=== PATIENT | female | born 1960 | race Caucasian/White ===

== ENCOUNTER 2018-01-03 22:14 | Emergency (ER) | payer BC ==
[2018-01-04] MEDS: HYDROCODONE/APAP (10/325) TAB PO (01:36)
[2018-01-04] MEDS: CYCLOBENZAPRINE 10 MG TAB PO (01:36)
== END 2018-01-04 01:50 | disposition home or self-care (01) ==
LOC: FTE 22:14
DX: M54.6 Pain in thoracic spine (principal); G89.29 Other chronic pain
CPT/HCPCS: 99283; Z7502

== ENCOUNTER 2018-09-17 05:25 | Inpatient (IN) | payer BC ==
[2018-09-17] MEDS ORDERED: DESFLURANE 15 MIN (07:00)
[2018-09-17] MEDS ORDERED: ROCURONIUM 50 MG INJ (07:27)
[2018-09-17] MEDS ORDERED: CEFAZOLIN 1 GM INJ (07:27)
[2018-09-17] MEDS ORDERED: GLYCOPYRROLATE 0.4 MG INJ (07:27)
[2018-09-17] MEDS ORDERED: NEOSTIGMINE 3 MG/3 ML SYRINGE (07:27)
[2018-09-17] MEDS ORDERED: PROPOFOL 40 ML (07:27)
[2018-09-17] MEDS ORDERED: FENTAnyl 50 MCG/ML VIAL ×2 (07:28)
[2018-09-17] MEDS ORDERED: DEXAMETHASONE 4 MG/ML 5 ML INJ (07:28)
[2018-09-17] MEDS ORDERED: ONDANSETRON 4 MG INJ (07:28)
[2018-09-17] MEDS ORDERED: MIDAZOLAM 1 MG/ML 2 ML INJ ×3 (07:28→07:57)
[2018-09-17] MEDS ORDERED: morphine SULFATE/PF (10 MG/10 ML) INJ (07:34)
[2018-09-17] MEDS: CEFAZOLIN 2 GM/50 ML (PMX) 50 ML IVPB (08:00)
[2018-09-17] MEDS ORDERED: KETOROLAC 30 MG INJ IV (08:30)
[2018-09-17] MEDS ORDERED: NALOXONE (0.4 MG/ML) INJ IV (08:30)
[2018-09-17] MEDS ORDERED: ALBUTEROL 0.083% (NEB) 2.5 MG/3 ML AMP HHN (08:30)
[2018-09-17] MEDS ORDERED: MIDAZOLAM 1 MG/ML 2 ML INJ IV (08:30)
[2018-09-17] MEDS ORDERED: ONDANSETRON 4 MG INJ IV (08:30)
[2018-09-17] MEDS ORDERED: DIPHENHYDRAMINE 50 MG INJ IV ×2 (08:30)
[2018-09-17] MEDS ORDERED: TRIMETHOBENZAMIDE 100 MG/ML VIAL IM ×2 (08:30)
[2018-09-17] MEDS ORDERED: FENTAnyl 50 MCG/ML VIAL IV ×2 (08:30)
[2018-09-17] MEDS ORDERED: ZOLPIDEM 5 MG TAB PO ×2 (08:30→21:00)
[2018-09-17] MEDS ORDERED: NALBUPHINE HCL (10 MG/1 ML) INJ IV (08:30)
[2018-09-17] MEDS ORDERED: OXYCODONE/ACETAMINOPHEN (5/325) TAB PO ×2 (08:30)
[2018-09-17] MEDS ORDERED: HYDROmorphONE 0.5 MG/0.5 ML SYG IV ×2 (08:30)
[2018-09-17] MEDS ORDERED: EPHEDrine 25 MG/5 ML SYG IV (08:30)
[2018-09-17] MEDS ORDERED: HYDROmorphONE 1 MG/5 ML IV SYRINGE IV ×2 (08:30)
[2018-09-17] MEDS ORDERED: IPRATROPIUM (NEB) 0.5 MG/2.5 ML AMP HHN (08:30)
[2018-09-17] MEDS ORDERED: MEPERIDINE 25 MG INJ IV (08:30)
[2018-09-17] MEDS ORDERED: hydrALAzine 20 MG INJ IV (08:30)
[2018-09-17] MEDS ORDERED: LABETALOL HCL 20MG INJ IV (08:30)
[2018-09-17] MEDS ORDERED: DIPHENHYDRAMINE 50 MG CAP PO (10:30)
[2018-09-17] MEDS: HYDROmorphONE 1 MG/5 ML IV SYRINGE IV (11:18)
[2018-09-17] MEDS: ONDANSETRON 4 MG INJ IV (11:18)
[2018-09-17] MEDS: FENTAnyl 50 MCG/ML VIAL IV (11:19)
[2018-09-17] MEDS: KETOROLAC 30 MG INJ IV ×3 (11:32→21:56)
[2018-09-17] MEDS: LACTATED RINGER'S 1,000 ML IV ×2 (11:33→15:46)
[2018-09-17] MEDS: METOCLOPRAMIDE 10 MG TAB PO ×3 (12:00→23:48)
[2018-09-17] MEDS ORDERED: CEFAZOLIN 1 GM/50 ML (PMX) 50 ML IVPB (14:00)
[2018-09-17] MEDS: ONDANSETRON INJ 6 MG in DEXTROSE 5% 50 ML IVPB (15:25)
[2018-09-17] MEDS: CEFAZOLIN 1 GM/50 ML (PMX) 50 ML IVPB ×2 (15:46→21:56)
[2018-09-17] MEDS: ENOXAPARIN 30 MG/0.3 ML SYG SC (21:02)
[2018-09-18] MEDS: LACTATED RINGER'S 1,000 ML IV ×2 (01:39→10:02)
[2018-09-18] MEDS: KETOROLAC 30 MG INJ IV ×4 (04:31→22:23)
[2018-09-18 05:33] LABS: ADD MAN DIFF? NO
[2018-09-18 05:41] LABS: WHITE BLOOD COUNT 17.3 10^3/ul (4.8-10.8)
[2018-09-18 05:41] LABS: BASOPHILS % 0.1 % (0.0-2.0); HEMATOCRIT 38.4 % (37.0-47.0); HEMOGLOBIN 12.8 g/dl (12.0-16.0); LYMPHOCYTES # 1.1 10^3/ul (0.8-2.9); LYMPHOCYTES % 6.1 % (15.0-51.0); MEAN CORPUSCULAR HEMOGLOBIN 29.4 pg (29.0-33.0); MEAN CORPUSCULAR HGB CONC 33.3 g/dl (32.0-37.0); MEAN CORPUSCULAR VOLUME 88.1 fl (82.0-101.0); MONOCYTE # 1.1 10^3/ul (0.3-0.9); MONOCYTES % 6.1 % (0.0-11.0); NEUTROPHIL # 15.1 10^3/ul (1.6-7.5); NEUTROPHILS % 87.2 % (39.0-77.0); PLATELET COUNT 223 10^3/UL (140-415); RED BLOOD COUNT 4.36 10^6/ul (4.20-5.40); RED CELL DISTRIBUTION WIDTH 13.4 % (11.5-14.5)
[2018-09-18 06:06] LABS: ANION GAP 4 (5-13); BLOOD UREA NITROGEN 8 mg/dl (7-20); CARBON DIOXIDE 29 mmol/L (21-31); CHLORIDE 107 mmol/L (97-110); CREATININE 0.49 mg/dl (0.44-1.00); POTASSIUM 3.9 mmol/L (3.5-5.1); SODIUM 140 mmol/L (135-144)
[2018-09-18] MEDS: CEFAZOLIN 1 GM/50 ML (PMX) 50 ML IVPB (06:07)
[2018-09-18] MEDS: PANTOPRAZOLE (EC) 40 MG TAB PO (06:08)
[2018-09-18] MEDS: METOCLOPRAMIDE 10 MG TAB PO ×4 (06:08→23:57)
[2018-09-18] MEDS: LEVOTHYROXINE 100 MCG TAB PO (06:08)
[2018-09-18] MEDS ORDERED: NON-FORMULARY/PATIENT OWN MED (Omeprazole* 20 MG) PO (09:00)
[2018-09-18] MEDS: ENOXAPARIN 30 MG/0.3 ML SYG SC ×2 (09:53→21:13)
[2018-09-18] MEDS: LORATADINE 10 MG TAB PO (09:53)
[2018-09-18] MEDS: CEPHALEXIN 500 MG CAP PO ×3 (13:50→23:57)
[2018-09-18] MEDS: HYDROCODONE/APAP (5/325) TAB PO (21:20)
[2018-09-19] MEDS: KETOROLAC 30 MG INJ IV ×4 (04:31→23:07)
[2018-09-19 05:29] LABS: WHITE BLOOD COUNT 11.3 10^3/ul (4.8-10.8)
[2018-09-19 05:29] LABS: ADD MAN DIFF? NO; BASOPHILS % 0.3 % (0.0-2.0); EOSINOPHILS % 0.4 % (0.0-7.0); HEMATOCRIT 37.1 % (37.0-47.0); HEMOGLOBIN 11.8 g/dl (12.0-16.0); LYMPHOCYTES # 3.4 10^3/ul (0.8-2.9); LYMPHOCYTES % 29.8 % (15.0-51.0); MEAN CORPUSCULAR HEMOGLOBIN 28.8 pg (29.0-33.0); MEAN CORPUSCULAR HGB CONC 31.8 g/dl (32.0-37.0); MEAN CORPUSCULAR VOLUME 90.5 fl (82.0-101.0); MEAN PLATELET VOLUME 10.9 fl (7.4-10.4); MONOCYTE # 0.7 10^3/ul (0.3-0.9); MONOCYTES % 5.7 % (0.0-11.0); NEUTROPHIL # 7.2 10^3/ul (1.6-7.5); NEUTROPHILS % 63.3 % (39.0-77.0); PLATELET COUNT 202 10^3/UL (140-415); RED CELL DISTRIBUTION WIDTH 13.9 % (11.5-14.5)
[2018-09-19] MEDS: LEVOTHYROXINE 100 MCG TAB PO (06:10)
[2018-09-19] MEDS: METOCLOPRAMIDE 10 MG TAB PO ×4 (06:10→23:08)
[2018-09-19] MEDS: PANTOPRAZOLE (EC) 40 MG TAB PO (06:10)
[2018-09-19] MEDS: CEPHALEXIN 500 MG CAP PO ×4 (06:10→23:07)
[2018-09-19] MEDS: LORATADINE 10 MG TAB PO (08:49)
[2018-09-19] MEDS: ENOXAPARIN 30 MG/0.3 ML SYG SC ×2 (08:53→20:54)
[2018-09-19] MEDS: HYDROCODONE/APAP (5/325) TAB PO (15:23)
[2018-09-19] MEDS: BISACODYL (EC) 5 MG TAB PO (17:32)
[2018-09-20] MEDS: KETOROLAC 30 MG INJ IV ×3 (04:37→17:32)
[2018-09-20] MEDS: PANTOPRAZOLE (EC) 40 MG TAB PO (05:00)
[2018-09-20] MEDS: CEPHALEXIN 500 MG CAP PO ×3 (05:00→17:32)
[2018-09-20] MEDS: LEVOTHYROXINE 100 MCG TAB PO (06:08)
[2018-09-20] MEDS: METOCLOPRAMIDE 10 MG TAB PO ×3 (06:08→17:32)
[2018-09-20] MEDS: LORATADINE 10 MG TAB PO (08:55)
[2018-09-20] MEDS: HYDROCODONE/APAP (5/325) TAB PO (17:38)
== END 2018-09-20 19:15 | disposition home or self-care (01) | DRG 743 ==
LOC: REC 05:25 → MS1 12:03
PROC: 0UT90ZZ Resection of Uterus, Open Approach (ICD-10-PCS; principal; 2018-09-17 07:30)
PROC: 0UT70ZZ Resection of Bilateral Fallopian Tubes, Open Approach (ICD-10-PCS; 2018-09-17 07:30)
PROC: 0UT20ZZ Resection of Bilateral Ovaries, Open Approach (ICD-10-PCS; 2018-09-17 07:30)
DX: D25.9 Leiomyoma of uterus, unspecified (principal); N80.1 Endometriosis of ovary; Z78.0 Asymptomatic menopausal state; G89.29 Other chronic pain; E89.0 Postprocedural hypothyroidism; D27.1 Benign neoplasm of left ovary; D27.0 Benign neoplasm of right ovary; Z85.850 Personal history of malignant neoplasm of thyroid; M54.9 Dorsalgia, unspecified
CPT/HCPCS: 80051; 82565; 84520; 85025; 86850; 86900; 86901; 86920; 87086; 88305; 93005